=== PATIENT | male | born 1985 | race Caucasian/White ===

== ENCOUNTER 2020-12-06 18:00 | Emergency (ER) | payer OTHER ==
[~2020-12-06] VITALS: Ht 193 cm; Wt 93.2 kg
--- NOTE | 2020-12-06 18:55 | PHYS DOC ---
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 He is always on the go. He is tired of constantly "go go go go." He states his mind never stops. It is always going to 100 mph. Patient reports previously underwent psychiatric evaluation and being on antipsychotic medications. He has been off this medication for a year now. Patient also reports personal and family stressors particularly with . Patient denies any alcohol, illicit drug or smoking. Denies any suicidal, homicidal ideations or attempts. Denies any auditory, visual, tactile hallucinations. Review of Systems Review of Systems Constitutional: Denies fever or chills [] Eyes: Denies change in visual acuity, redness, or eye pain [] HENT: Denies nasal congestion or sore throat [] Respiratory: Denies cough or shortness of breath [] Cardiovascular: No additional information not addressed in HPI [] GI: Denies abdominal pain, nausea, vomiting, bloody stools or diarrhea [] : Denies dysuria or hematuria [] Musculoskeletal: Denies back pain or joint pain [] Integument: Denies rash or skin lesions [] Neurologic: Denies headache, focal weakness or sensory changes [] Endocrine: Denies polyuria or polydipsia [] Psychiatry: Reports racing thoughts, unable to control moods. Denies any auditory, visual, tactile hallucinations. Denies any suicidal, homicidal ideations or attempts. All other systems were reviewed and found to be within normal limits, except as documented in this note. Physical Exam Physical Exam Constitutional: Well developed, well nourished, no acute distress, non-toxic appearance. [] HENT: Normocephalic, atraumatic, bilateral external ears normal, oropharynx moist, no oral exudates, nose normal. [] Eyes: PERRLA, EOMI, conjunctiva normal, no discharge. [] Neck: Normal range of motion, no tenderness, supple, no stridor. [] Cardiovascular:Heart rate regular rhythm, no murmur [] Lungs & Thorax: Bilateral breath sounds clear to auscultation [] Abdomen: Bowel sounds normal, soft, no tenderness, no masses, no pulsatile masses. [] Skin: Warm, dry, no erythema, no rash. [] Back: No tenderness, no CVA tenderness. [] Extremities: No tenderness, no cyanosis, no clubbing, ROM intact, no edema. [] Neurologic: Alert and oriented X 3, normal motor function, normal sensory function, no focal deficits noted. [] Psychologic: Flight of ideas noted. Severely anxious. Not suicidal or homicida l. No , , TH. Current Patient Data Vital Signs Vital Signs Date Time Temp Pulse Resp B/P (MAP) Pulse Ox O2 Delivery O2 Flow Rate FiO2 12/06/20 18:46 97.7 104 20 160/107 (124) 98 EKG EKG [] Radiology/Procedures Radiology/Procedures [] Heart Score C/O Chest Pain: N/A Risk Factors: Risk Factors: DM, Current or recent (<one month) smoker, HTN, HLP, family history of CAD, obesity. Risk Scores: Risk Factors: DM, Current or recent (<one month) smoker, HTN, HLP, family history of CAD, obesity. Course & Med Decision Making Course & Med Decision Making Patient been medically stable and afebrile in the ER. Patient was examined and evaluated immediately upon arrival to the ER. Patient has long history of ADHD, PTSD, bipolar disorders and severe anxiety with depression. Patient currently undergoing flight of ideas rapid and racing thoughts. Patient has not evaluated by psychiatrist for a while now. He is off his Doctor Fun dications for over a year now. Psychiatry assessment team evaluated the patient. Recommend patient be admitted to [facility] for paranoia. Patient blood work reviewed. No acute findings. Urine study also revealed no acute findings. Patient was given initially lorazepam 1 mg IM x1 with significant relaxation of his mood and thoughts. Patient was transferred via ambulance to [facility] in [place] under the care of Dr. Jara Laboratory Tests Test 12/06/20 18:10 12/06/20 20:01 White Blood Count 6.1 x10^3/uL Red Blood Count 4.45 x10^6/uL Hemoglobin 13.0 g/dL Hematocrit 38.4 % Mean Corpuscular Volume 86 fL Mean Corpuscular Hemoglobin 29 pg Mean Corpuscular Hemoglobin Concent 34 g/dL Red Cell Distribution Width 14.3 % Platelet Count 366 x10^3/uL Neutrophils (%) (Auto) 61 % Lymphocytes (%) (Auto) 26 % Monocytes (%) (Auto) 12 % Eosinophils (%) (Auto) 1 % Basophils (%) (Auto) 1 % Neutrophils # (Auto) 3.8 x10^3uL Lymphocytes # (Auto) 1.6 x10^3/uL Monocytes # (Auto) 0.7 x10^3/uL Eosinophils # (Auto) 0.1 x10^3/uL Basophils # (Auto) 0.0 x10^3/uL Urine Collection Type Unknown Urine Color Yellow Urine Clarity Clear Urine pH 5.5 Urine Specific [place] <=1.005 Urine Protein Neg Urine Glucose (UA) Neg mg/dL Urine Ketones (Stick) Neg mg/dL Urine Blood Trace Urine Nitrite Neg Urine Bilirubin Neg Urine Urobilinogen Dipstick 0.2 mg/dL Urine Leukocyte Esterase Neg Urine RBC Occ /HPF Urine WBC 0 /HPF Urine Squamous Epithelial Cells Occ /LPF Urine Bacteria 0 /HPF Magnesium Level 2.3 mg/dL Troponin I Quantitative < 0.017 ng/mL Urine Opiates Screen Neg Urine Methadone Screen Neg Urine Barbiturates Neg Urine Phencyclidine Screen Neg Urine Amphetamine/Methamphetamine Pos Urine Benzodiazepines Screen Neg Urine Cocaine Screen Neg Urine Cannabinoids Screen Pos Ethyl Alcohol Level < 10 mg/dL Urine Ethyl Alcohol Neg SARS-CoV-2 Antigen (Rapid) Negative Current Medications Medications (Trade) Dose Ordered Sig/Milo Route PRN Reason Start Time Stop Time Status Last Admin Dose Admin Lorazepam (Ativan Inj) 1 mg 1X ONCE IM 12/06/20 19:45 12/06/20 19:52 DC 12/06/20 19:48 [] Dragon Disclaimer Dragon Disclaimer This electronic medical record was generated, in whole or in part, using a voice recognition dictation system. Departure Departure: Impression: Primary Impression: Paranoia Additional Impressions: Anxiety Bipolar disorder (manic depression) PTSD (post-traumatic stress disorder) ADHD Disposition: [facility]RIC [facility] Condition: IMPROVED Referrals: PCP,NO (PCP) Patient Instructions: Manic Depression (Bipolar Disorder), Paranoia Problem Qualifiers BESSIE WETZEL MD Dec 06, 2020 18:55
[2020-12-06 19:48] LABS: BASO % 1 % (0-3); EOS # 0.1 x10^3/uL (0.0-0.7); EOS % 1 % (0-3); HEMATOCRIT 38.4 % (39.0-53.0); LYMPH # 1.6 x10^3/uL (1.0-4.8); LYMPH % 26 % (24-48); MEAN CORPUSCULAR HEMOGLOBIN 29 pg (25-35); MEAN CORPUSCULAR HGB CONC 34 g/dL (31-37); MEAN CORPUSCULAR VOLUME 86 fL (79-100); MONO # 0.7 x10^3/uL (0.0-1.1); MONO % 12 % (0-9); NEUT # 3.8 x10^3uL (1.8-7.7); NEUT % 61 % (31-73); PLATELET COUNT 366 x10^3/uL (140-400); RED BLOOD COUNT 4.45 x10^6/uL (4.30-5.70); RED CELL DISTRIBUTION WIDTH 14.3 % (11.5-14.5); WHITE BLOOD COUNT 6.1 x10^3/uL (4.0-11.0)
[2020-12-06 20:01] LABS: BARBITURATES NEG (NEG); BENZODIAZEPINES NEG (NEG); CANNABINOIDS POS (NEG); COCAINE NEG (NEG); METHADONE NEG (NEG); OPIATES NEG (NEG); PHENCYCLIDINE NEG (NEG)
[2020-12-06 20:17] LABS: BILIRUBIN,URINE NEG (NEG); CLARITY,URINE CLEAR; COLOR,URINE YELLOW; GLUCOSE,URINE NEG (NEG); NITRITE,URINE NEG (NEG); UROBILINOGEN,URINE 0.2 mg/dL (0.2 mg/dL)
[2020-12-06 20:18] LABS: BACTERIA,URINE 0 /HPF (0-FEW); RBC,URINE OCC /HPF (0-2); SQUAMOUS EPITHELIAL CELL,UR OCC /LPF; WBC,URINE 0 /HPF (0-4)
[2020-12-06 20:19] LABS: AMPHETAMINE/METHAMPHETAMINE POS (NEG)
--- NOTE | 2020-12-06 23:26 | EKG ---
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
[2020-12-07 03:03] VITALS: BP 133/85
== END 2020-12-07 03:56 ==
LOC: ER 18:00
DX: F22 Delusional disorders (principal); F31.9 Bipolar disorder, unspecified; F41.9 Anxiety disorder, unspecified; F43.10 Post-traumatic stress disorder, unspecified; F90.9 Attention-deficit hyperactivity disorder, unspecified type; Z20.822 Contact with and (suspected) exposure to COVID-19
CPT/HCPCS: 36415; 80307; 81001; 83735; 84443; 84484; 85025; 87426; 93005; 96372; 99284; C9803; G0480; J2060; U0003